=== PATIENT | female | born 1930 | race American Indian/Alaskan Native ===

== ENCOUNTER 2016-11-04 03:38 | Emergency (ER) | payer MEDICARE ==
[~2016-11-04 03:38] MED LIST: ADRENALIN ONE; CORDARONE IV ONE; SODIUM BICARBONATE IV ONE
--- NOTE | 2016-11-04 05:41 | Emergency Department Report ---
ED CPR HPI - General Chief Complaint: Cardiac Arrest/CPR Stated Complaint: CARDIAC ARREST Time Seen by Provider: 11/04/16 03:51 Source: family, EMS Mode of arrival: Stretcher Limitations: Other - History of Present Illness Initial Comments: This is a 85-year-old Afro-Citizen Of [place] female who presents to the emergency department by EMS in cardiac arrest with CPR underway. The patient was found unresponsive in bed by family with an unknown down time. The family immediately started doing chest compressions. When EMS got there, the patient was asystole and they began ACLS protocol. They worked on the patient for about 30 minutes including consistent chest compressions, intubation, bag valve ventilation, 4 rounds of epinephrine and one of sodium bicarbonate. The patient got to the emergency department she was still pulseless and in asystole. Patient had a past medical history of chronic kidney disease not on dialysis, hypertension, diabetes. - Related Data Home Medications Medication Instructions Recorded Confirmed Last Taken Acetaminophen [Tylenol] 500 mg PO Q6HR PRN 05/06/15 04/15/16 Unknown Cholecalciferol (Vitamin D3) 2,000 unit PO DAILY 05/06/15 04/15/16 Unknown [Vitamin D3] Ferrous Sulfate [Feosol 325 MG tab] 300 mg PO BID 05/06/15 04/15/16 Unknown Vit B Cmplx 3/FA/Vit C/Biotin 1 tab PO DAILY 05/06/15 04/15/16 Unknown [Zulma-Joan Rx Tablet] cloNIDine [Catapres] 0.2 mg PO BID 05/06/15 04/15/16 Unknown Furosemide [Lasix] 20 mg PO BID 04/15/16 04/15/16 Unknown Previous Rx's Medication Instructions Recorded Last Taken Type ALPRAZolam [Xanax TAB] 0.5 mg PO TID PRN #30 tab 05/09/15 Unknown Rx Allopurinol [Zyloprim] 100 mg PO QDAY #30 tablet 05/09/15 Unknown Rx Atenolol [Tenormin] 100 mg PO DAILY #30 tablet 05/09/15 Unknown Rx HYDROcodone/APAP 5-325 [[place] 1 each PO Q6HR PRN #60 tablet 05/09/15 Unknown Rx 5-325 mg TAB] Insulin NPH/Regular [NovoLIN 70/30] 100 unit SQ PRN #30 units 10/05/15 Unknown Rx Lisinopril [Zestril TAB] 20 mg PO BID #60 mg 05/09/15 Unknown Rx Pravastatin Sodium [Pravastatin] 40 mg PO QHS #30 tablet 05/09/15 Unknown Rx amLODIPine [Norvasc] 5 mg PO DAILY #30 tab 05/09/15 Unknown Rx Allergies Allergy/AdvReac Type Severity Reaction Status Date / Time digoxin [From Lanoxin] Allergy Severe Swelling Verified 12/04/13 18:33 codeine AdvReac Itching Verified 04/15/16 23:18 ED Review of Systems ROS: Stated complaint: CARDIAC ARREST Other details as noted in HPI Comment: Unobtainable due to pts medical conditions ED Past Medical Hx - Past Medical History Hx Hypertension: Yes Hx Congestive Heart Failure: Yes Hx Diabetes: Yes Hx GERD: Yes Hx Renal Disease: Yes Hx Arthritis: Yes Hx Asthma: No Hx HIV: No - Surgical History Hx Breast Surgery: Yes Additional Surgical History: Hysterectomy, Shoulder - Social History Smoking Status: Former Smoker Substance Use Type: None - Medications Home Medications: Home Medications Medication Instructions Recorded Confirmed Last Taken Type Acetaminophen [Tylenol] 500 mg PO Q6HR PRN 05/06/15 04/15/16 Unknown History Cholecalciferol (Vitamin D3) 2,000 unit PO DAILY 05/06/15 04/15/16 Unknown History [Vitamin D3] Ferrous Sulfate [Feosol 325 MG tab] 300 mg PO BID 05/06/15 04/15/16 Unknown History Vit B Cmplx 3/FA/Vit C/Biotin 1 tab PO DAILY 05/06/15 04/15/16 Unknown History [Zulma-Joan Rx Tablet] cloNIDine [Catapres] 0.2 mg PO BID 05/06/15 04/15/16 Unknown History ALPRAZolam [Xanax TAB] 0.5 mg PO TID PRN #30 tab 05/09/15 04/15/16 Unknown Rx Allopurinol [Zyloprim] 100 mg PO QDAY #30 tablet 05/09/15 04/15/16 Unknown Rx Atenolol [Tenormin] 100 mg PO DAILY #30 tablet 05/09/15 04/15/16 Unknown Rx HYDROcodone/APAP 5-325 [Med[place] 1 each PO Q6HR PRN #60 tablet 05/09/15 04/15/16 Unknown Rx 5-325 mg TAB] Insulin NPH/Regular [NovoLIN 70/30] 100 unit SQ PRN #30 units 05/09/15 04/15/16 Unknown Rx Lisinopril [Zestril TAB] 20 mg PO BID #60 mg 05/09/15 04/15/16 Unknown Rx Pravastatin Sodium [Pravastatin] 40 mg PO QHS #30 tablet 05/09/15 04/15/16 Unknown Rx amLODIPine [Norvasc] 5 mg PO DAILY #30 tab 05/09/15 04/15/16 Unknown Rx Furosemide [Lasix] 20 mg PO BID 04/15/16 04/15/16 Unknown History ED Physical Exam - General Limitations: Other - Other Other exam information: GENERAL: Patient is ill-appearing and unresponsive. HEENT: Normocephalic. Pupils are fixed and dilated. NECK: Supple. Trachea is midline. CHEST/LUNGS: There are no spontaneous lung sounds. HEART/CARDIOVASCULAR: No spontaneous heart sounds. ABDOMEN: Abdomen is soft. SKIN: Skin is cool but dry. NEURO: Patient is unresponsive to verbal, tactile or painful stimuli and does not follow any commands. MUSCULOSKELETAL: There is no deformity. No spontaneous movement of the extremities. There was no palpable pulse to the radial or femoral regions. ED Medical Decision Making - Medical Decision Making 85-year-old female presents in cardiac arrest with CPR underway. Patient already received 30 minutes of ACLS and remained in asystole the entire time and this included 4 rounds of epinephrine and one of sodium bicarbonate. There was unknown down time even prior to family finding the patient or EMS being called. Once the patient arrived to the emergency department she was rechecked and was still pulseless. Chest compressions were continued and the patient was placed on the monitor. Patient had good breath sounds with intubation and bag valve ventilation. The monitor once again showed asystole. She was given a round of epinephrine and sodium bicarbonate. On the next pulse and/or rhythm check, the patient still was asystolic and pulseless. An ultrasound up to the heart and there was no movement, squeeze, flutter. At this point time of was called. Family was notified and allowed to see the patient. Critical Care Time: No Critical care attestation.: If time is entered above; I have spent that time in minutes in the direct care of this critically ill patient, excluding procedure time. ED Disposition Clinical Impression: Cardiac arrest Disposition: Is pt being admited?: No Referrals: JMAIE LEY JR, MD [Primary Care Provider] - 3-5 Days
== END 2016-11-04 07:07 ==
LOC: ED 03:38
DX: I46.9 Cardiac arrest, cause unspecified (principal); I10 Essential (primary) hypertension; I50.9 Heart failure, unspecified; E11.9 Type 2 diabetes mellitus without complications; K21.9 Gastro-esophageal reflux disease without esophagitis; M19.90 Unspecified osteoarthritis, unspecified site; Z87.891 Personal history of nicotine dependence; Z88.5 Allergy status to narcotic agent; Z88.8 Allergy status to other drugs, medicaments and biological substances; Z79.4 Long term (current) use of insulin
CPT/HCPCS: 92950; 99285; J0171; J0282